=== PATIENT | male | born 1975 | race Two or more races ===

== ENCOUNTER 2024-05-06 09:14 | Emergency (ER) | payer OTHER ==
[~2024-05-06] VITALS: Ht 167.6 cm; Wt 82.6 kg
[2024-05-06] MEDS ORDERED: WELLBUTRIN XL300 MG PO (10:09)
[2024-05-06] MEDS ORDERED: FAMOTIDINE/PF 20 MG in 0.9 % SODIUM CHLORIDE 8 ML IV PUSH STA (10:54)
[2024-05-06] MEDS ORDERED: MEPERIDINE HCL/PF 50 MG/ML VIAL IM ONE (11:00)
[2024-05-06] MEDS ORDERED: ONDANSETRON HCL 2 MG/ML VIAL IV ONE (11:00)
[2024-05-06] MEDS ORDERED: PIPERACILLIN/TAZOBACTAM SODIUM 3.375 GM VIAL IV ONE (11:00)
[2024-05-06] MEDS ORDERED: 0.9 % SODIUM CHLORIDE 1,000 ML IV SCH (11:00)
[2024-05-06 11:18] LABS: HEMATOCRIT 44.1 % (39.0-48.0); HEMOGLOBIN 15.4 g/dL (13-16.00); MEAN CORPUSCULAR HEMOGLOBIN 31.5 pg (27.00-32.0); PLATELET COUNT 223 K/uL (150-450); RED CELL DISTRIBUTION WIDTH 14.2 % (11.5-14.5)
[2024-05-06 11:58] LABS: ALBUMIN 3.5 gm/dL (3.4-5.0); BILIRUBIN TOTAL 0.62 mg/dL (0.3-1.2); CALCIUM 8.8 mg/dL (8.5-10.1); CREATININE SERUM 0.89 mg/dL (0.70-1.30); GFR 91.62; GLOBULINA 4.4 G/DL (2.4-3.5); POTASSIUM 4.14 mEq/L (3.5-5.1); TOTAL PROTEIN 7.9 gm/dL (6.4-8.2)
[2024-05-06] MEDS ORDERED: CIPRO500 MG PO (13:54)
[2024-05-06] MEDS ORDERED: OMEPRAZOLE40 MG PO (13:54)
[2024-05-06] MEDS ORDERED: METRONIDAZOLE500 MG PO (13:54)
[2024-05-06] MEDS ORDERED: LEVSIN/SL0.125 MG SL (13:54)
== END 2024-05-06 14:10 | disposition home or self-care (01) ==
LOC: ER 09:16 → EDBD 09:36 → ER 14:10
PROVIDERS: General Practice
DX: K57.32 Diverticulitis of large intestine without perforation or abscess without bleeding (principal)